=== PATIENT | female | born 1955 | race Two or more races ===

== ENCOUNTER 2020-10-22 08:12 | Outpatient (REF) | payer MEDICARE, MEDICAID, SELFPAY | END 2020-10-22 08:13 | disposition home or self-care (01) | LOC: HO.LAB 08:12 | PROVIDERS: Visit Provider Obstetrics & Gynecology | DX: N72 Inflammatory disease of cervix uteri (principal); B97.7 Papillomavirus as the cause of diseases classified elsewhere | CPT/HCPCS: 57454; 88305; 88342; 88360 ==

== ENCOUNTER → 2020-10-31 09:50 | Outpatient (BNVA) | payer MEDICAID, SELFPAY | PROVIDERS: Visit Provider Obstetrics & Gynecology ==

== ENCOUNTER 2021-02-18 09:29 | Outpatient (REF) | payer MEDICARE, MEDICAID, SELFPAY ==
--- NOTE | ~2021-02-18 | MM_ITS ---
EXAMINATION: MM SCREENING DIGITAL BREAST TOMOSYNTHESIS, BILATERAL CLINICAL INFORMATION: Screening. Asymptomatic. The lifetime risk of breast cancer based on the Tyrer-Cuzick Model is 7%. COMPARISON: Mammography: 11/19/2019, 11/15/2018, 02/23/2017 TECHNIQUE: Digital breast tomosynthesis is performed in both the craniocaudal and mediolateral oblique views along with computer-aided detection (CAD). Synthesized 2D images are generated from the tomosynthesis. Additional right MLO view is provided. FINDINGS: The breasts are heterogeneously dense, which may obscure small masses (ACR BI-RADS breast composition Category c). There are no significant masses, abnormal calcifications, or other abnormalities. Parenchymal pattern is similar to prior exams. The axilla and skin contours are unremarkable. MM/MM tomosynthesis screening BI IMPRESSION: No mammographic evidence of malignancy. ASSESSMENT: BI-RADS 1: Negative RECOMMENDATION: Routine annual mammography screening. This patient's information was entered into a reminder system with a target due date for their next mammogram.
== END 2021-02-18 09:30 | disposition home or self-care (01) ==
LOC: HO.MAMMO 09:29
PROVIDERS: PCP Nurse Practitioner Family; Visit Provider Nurse Practitioner Family
DX: Z12.31 Encounter for screening mammogram for malignant neoplasm of breast (principal)
CPT/HCPCS: 77063; 77067

== ENCOUNTER 2021-09-12 10:17 | Outpatient (REF) | payer MEDICARE, MEDICAID, SELFPAY | END 2021-09-12 10:18 | disposition home or self-care (01) | LOC: HO.LAB 10:17 | PROVIDERS: PCP Nurse Practitioner Family; Visit Provider Internal Medicine | DX: Z20.822 Contact with and (suspected) exposure to COVID-19 (principal) | CPT/HCPCS: C9803; U0003; U0005 ==

== ENCOUNTER → 2021-12-25 20:39 | Outpatient (REF) | payer MEDICARE, MEDICAID, SELFPAY | LOC: HO.SL 20:39 | PROVIDERS: Visit Provider Nurse Practitioner Family | DX: G47.33 Obstructive sleep apnea (adult) (pediatric) (principal) | CPT/HCPCS: 95810 ==

== ENCOUNTER 2022-02-20 08:34 | Outpatient (REF) | payer MEDICARE, MEDICAID, SELFPAY ==
--- NOTE | ~2022-02-20 | MM_ITS ---
EXAMINATION: BONE DENSITOMETRY CLINICAL INDICATION: Menopause. COMPARISON: None (current study represents initial baseline exam). TECHNIQUE: Using a [employer] DXA System (software version: 13.1) manufactured by [employer], dual-energy x-ray absorptiometry was performed of the lumbar spine and left hip. The images are of good technical quality. Summary results are attached. FINDINGS: AP SPINE L1-L4: BMD 0.987 g/cm2, Z-score -0.3, T-score -1.6, osteopenia. LEFT FEMUR, NECK: BMD 0.970 g/cm2, Z-score 0.8, T-score -0.5, normal. LEFT FEMUR, TOTAL: BMD 1.046 g/cm2, Z-score 1.3, T-score 0.3, normal. IDENTIFIED RISK FACTORS: Menopause. HISTORY OF FRACTURE: None listed. MEDICATIONS: Vitamin D. MM/XR DEXA axial skeleton IMPRESSION: 1. DIAGNOSIS: Osteopenia based on the lowest T-score value of -1.6 in the lumbar spine applying World Health Organization criteria. 2. 10-YEAR FRACTURE RISK PREDICTION, FRAX: Major osteoporotic fracture (clinical spine, forearm, hip or shoulder) 4.1%. Hip fracture 0.2%. 3. Treatment Recommendations: NOF guidelines recommend consideration for treatment in postmenopausal women and men age 50 and older presenting with the following: -A hip or vertebral (clinical or morphometric) fracture. -T-score less than or equal to -2.5 at the femoral neck or spine after appropriate evaluation to exclude secondary causes. -Low bone mass at the hip or spine and a 10-year fracture probability by FRAX of greater than or equal to 3% for hip fracture or greater than or equal to 20% for major osteoporotic fracture based on the [place] adapted WHO algorithm. 4. Other Recommendations: All treatment decisions require clinical judgment and consideration of individual patient factors, including patient preferences, comorbidities, previous drug use, risk factors not captured in the FRAX model (e.g. frailty, falls, vitamin D deficiency, increased bone turnover, interval significant decline in bone density) and possible under or overestimation of fracture risk by FRAX. Additional medical evaluation for secondary cause of low bone mineral density may be appropriate. FUTURE SCAN RECOMMENDATION: People with diagnosed cases of osteoporosis or at high risk for fracture should have regular bone mineral density tests. For patients eligible for Medicare, routine testing is allowed once every 2 years. The testing frequency can be increased to one year for patients who have rapidly progressing disease, those who are receiving or discontinuing medical therapy to restore bone mass, or have additional risk factors.
--- NOTE | ~2022-02-20 | MM_ITS ---
EXAMINATION: MM SCREENING DIGITAL BREAST TOMOSYNTHESIS, BILATERAL CLINICAL INFORMATION: Screening. Asymptomatic. The lifetime risk of breast cancer based on the Tyrer-Cuzick Model is 3.9%. COMPARISON: Mammography: February 18, 2021 and studies dating back to February 23, 2017 TECHNIQUE: Digital breast tomosynthesis is performed in both the craniocaudal and mediolateral oblique views along with computer-aided detection (CAD). Synthesized 2D images are generated from the tomosynthesis. FINDINGS: The breasts are heterogeneously dense, which may obscure small masses (ACR BI-RADS breast composition Category c). There are no significant masses, abnormal calcifications, or other abnormalities. MM/MM tomosynthesis screening BI IMPRESSION: There are no significant changes from prior study. ASSESSMENT: BI-RADS 1: Negative RECOMMENDATION: Routine annual mammography screening. This patient's information was entered into a reminder system with a target due date for their next mammogram.
== END 2022-02-20 08:35 | disposition home or self-care (01) ==
LOC: HO.MAMMO 08:34
PROVIDERS: PCP Nurse Practitioner Family; Visit Provider Nurse Practitioner Family
DX: Z12.31 Encounter for screening mammogram for malignant neoplasm of breast (principal); Z13.820 Encounter for screening for osteoporosis; Z78.0 Asymptomatic menopausal state; M85.80 Other specified disorders of bone density and structure, unspecified site
CPT/HCPCS: 77063; 77067; 77080

== ENCOUNTER 2022-12-25 07:24 | Outpatient (REF) | payer MEDICARE, MEDICAID, SELFPAY ==
--- NOTE | ~2022-12-25 | US_ITS ---
EXAMINATION: US ABDOMEN COMPLETE CLINICAL INFORMATION: Abdominal pain. COMPARISON: None available. TECHNIQUE: Real-time imaging of the abdominal viscera. FINDINGS: PANCREAS: Normal. ABDOMINAL AORTA: The proximal, mid, and distal segments are normal in caliber. INFERIOR VENA CAVA: Visualized portions are normal. LIVER: The liver is normal in size. The liver contour is normal. There is diffuse increased liver parenchymal echogenicity, consistent with hepatic steatosis. There is an area of focal fatty sparing seen adjacent to the gallbladder. No worrisome focal solid masses. There is no intrahepatic biliary duct dilatation seen. GALLBLADDER: Normal. The gallbladder is physiologically distended without evidence of stones, sludge, polyps, wall thickening or pericholecystic fluid. COMMON BILE DUCT: Normal in caliber measuring 0.5 cm in diameter. RIGHT KIDNEY: Normal. No hydronephrosis. No renal calculi or focal parenchymal lesions. The kidney measures 10.4 cm in maximum dimension. LEFT KIDNEY: Normal. No hydronephrosis. No renal calculi or focal parenchymal lesions. The kidney measures 10.3 cm in maximum dimension. SPLEEN: Normal. The spleen measures 9.0 cm in maximum dimension. FREE FLUID: None. US/US abdomen complete IMPRESSION: Hepatic steatosis.
== END 2022-12-25 07:25 | disposition home or self-care (01) ==
LOC: HO.US 07:24
PROVIDERS: Visit Provider Family Medicine
DX: R10.84 Generalized abdominal pain (principal)
CPT/HCPCS: 76700

== ENCOUNTER 2023-03-19 09:49 | Outpatient (REF) | payer MEDICARE, MEDICAID, SELFPAY ==
--- NOTE | ~2023-03-19 | MM_ITS ---
EXAMINATION: MM SCREENING DIGITAL BREAST TOMOSYNTHESIS, BILATERAL CLINICAL INFORMATION: Screening. Asymptomatic. The lifetime risk of breast cancer based on the Tyrer-Cuzick Model is 7%. COMPARISON: Mammography: 02/20/2022, 02/18/2021, 11/19/2019, 11/15/2018 TECHNIQUE: Digital breast tomosynthesis is performed in both the craniocaudal and mediolateral oblique views along with computer-aided detection (CAD). Synthesized 2D images are generated from the tomosynthesis. FINDINGS: The breasts are heterogeneously dense, which may obscure small masses (ACR BI-RADS breast composition Category c). There is a fibronodular parenchymal pattern is similar to prior studies. No developing density or architectural abnormality. There are no significant masses, abnormal calcifications, or other abnormalities. The axilla and skin contours are unremarkable. MM/MM tomosynthesis screening BI IMPRESSION: No mammographic evidence of malignancy. ASSESSMENT: BI-RADS 1: Negative RECOMMENDATION: Routine annual mammography screening. This patient's information was entered into a reminder system with a target due date for their next mammogram.
== END 2023-03-19 09:50 | disposition home or self-care (01) ==
LOC: HO.MAMMO 09:49
PROVIDERS: PCP Nurse Practitioner Family; Visit Provider Nurse Practitioner Family
DX: Z12.31 Encounter for screening mammogram for malignant neoplasm of breast (principal)
CPT/HCPCS: 77063; 77067

== ENCOUNTER 2023-05-15 19:21 | Outpatient (REF) | payer MEDICARE, MEDICAID, SELFPAY ==
[2023-05-26 04:38] LABS: HPV 16 RNA NOT DETECTED (NOT DETECTED); HPV mRNA E6/E7 rflx Detected (Not Detected)
== END 2023-05-15 19:22 | disposition home or self-care (01) ==
LOC: HO.HHCLNP 19:21
PROVIDERS: Visit Provider Nurse Practitioner Family
DX: R87.619 Unspecified abnormal cytological findings in specimens from cervix uteri (principal)
CPT/HCPCS: 87624; 87625; 88142

== ENCOUNTER 2023-08-07 09:56 | Outpatient (REF) | payer MEDICARE, MEDICAID, SELFPAY ==
[2023-08-07 12:35] LABS: Vitamin D 25-OH Total 46.9 ng/mL (>30)
== END 2023-08-07 09:57 | disposition home or self-care (01) ==
LOC: HO.HHCL 09:56
PROVIDERS: Visit Provider Nurse Practitioner Family
DX: E55.9 Vitamin D deficiency, unspecified (principal)
CPT/HCPCS: 36415; 82306

== ENCOUNTER 2024-03-23 11:12 | Outpatient (REF) | payer MEDICARE, MEDICAID, SELFPAY | END 2024-03-23 11:13 | disposition home or self-care (01) | LOC: HO.MAMMO 11:12 | PROVIDERS: Visit Provider Nurse Practitioner Family | DX: Z12.31 Encounter for screening mammogram for malignant neoplasm of breast (principal) | CPT/HCPCS: 77063; 77067 ==

== ENCOUNTER → 2024-03-23 11:45 | Outpatient (BNV) | payer MEDICARE, MEDICAID, SELFPAY | PROVIDERS: Visit Provider Radiology Diagnostic Radiology | DX: Z12.31 Encounter for screening mammogram for malignant neoplasm of breast (principal) | CPT/HCPCS: 77063; 77067 ==

== ENCOUNTER 2024-04-29 09:12 | Outpatient (REF) | payer MEDICARE, MEDICAID, SELFPAY ==
[2024-04-29 21:02] LABS: Cholesterol 202 mg/dL (<200); HDL Cholesterol 42 mg/dL (>40); LDL Cholesterol Calculated 100 mg/dL (<100); Triglycerides 302 mg/dL (<150)
== END 2024-04-29 09:13 | disposition home or self-care (01) ==
LOC: HO.HHCL 09:12
PROVIDERS: Visit Provider Nurse Practitioner Family
DX: E78.2 Mixed hyperlipidemia (principal)
CPT/HCPCS: 36415; 80061

== ENCOUNTER 2025-02-27 08:48 | Outpatient (REF) | payer MEDICARE, MEDICAID, SELFPAY ==
--- NOTE | ~2025-02-27 | XR_ITS ---
EXAMINATION: XR HAND 3 OR MORE VIEWS RIGHT HISTORY: pain COMPARISON: There are no prior studies available for comparison. FINDINGS: Four views of the right hand are submitted. Osseous mineralization is normal. There is no fracture or dislocation. The joint spaces are preserved. The soft tissues are unremarkable. XR/XR hand RT min 3V IMPRESSION: Unremarkable examination of the right hand. Electronically signed by: Jeovanny Arenas MD 02/27/2025 01:23 PM EDT
--- OUTSIDE RECORDS SUMMARY | 2025-02-27 08:58 | XMS_ITS | Encounter Summary ---
Author Organization [employer] Address [address] [place] [address] Care Team Providers Care Sports Medicine Trainer Name Role Phone Tanika Bazan HAULPAK DRIVER Primary Care Provider [phone] Stephanie Valdivia CREATIVE PROJECT MANAGER Primary Care Provider [phone] [facility] HAULPAK DRIVER Primary Care Provider [phone] Reason for Visit * Reason Onset Date Comments Results 12/30/2023 Encounter Details Date Type Department Care Team ([facility] st Contact Info) Description 12/30/2023 Telephone [facility] [address] [place] [address] Tanika Bazan FNP [address] [place], [place] [id number] Results Social History Tobacco Use Types Packs/Day Years Used Date Smoking Tobacco: Never Passive Smoke Exposure: Never Smokeless Tobacco: Never Alcohol Use Standard Drinks/Week Comments Never 0 (1 standard drink = 0.6 oz pur e alcohol) Depression Answer Date Recorded Patient Health Questionnaire-9 Score 0 12/24/2022 Housing Stability Answer Date Recorded What is your housing situation today? I have bishnu craig 08/01/[address] you li ve. Do you have problems with any of the following? None of the above 08/01/2023 Food Insecurity Answer Date Recorded Within the past 12 months, y ou worried that your food would run out before you got money to buy more: Never True 08/01/2023 Within the past 12 months,th e food you bought just didn't last and you didn't have enough money to get more: Never True Transportation Answer Date Recorded In the past 12 months, has l ack of transportation kept you from medical appts, meetings, work or from getting things needed for daily living? No 08/01/2023 Utilities Answer Date Recorded In the past 12 months, has t he electric, gas, oil or water company threatened to shut off services in your home? No 08/01/2023 Depression Answer Date Recorded Patient Health Questionnaire-2 Score 0 12/21/2023 Comments Unknown Sex and Gender Information Value Date Recorded Sex Assigned at Female 08/11/2022 10:31 AM EDT Legal Sex Female 10:31 AM EDT Gender Identity Choose not to disclose 10:31 AM EDT Sexual Orientation Choose not to disclose 2021 10:31 AM EDT documented as of this encounter Miscellaneous Notes * Telephone Encounter - Jessenia Ren RN - 12/31/2023 11:51 AM EDT T/C to patient to advise them to call ordering provider for echo results. Used [employer] Demond Louise ID#[id number] No answer and no option to leave voicemail. Signed, Ed Carter RN, training with Jessenia Ren * Telephone Encounter - Víctor Yusuf - 12/30/2023 10:08 AM EDT TC from pt requesting call back regarding Results. Type of results: Labs Date when done: 12/30/23 Facility: [facility] TC from pt requesting call back regarding Results. Type of results: Echo Date when done: 12/24/23 Facility: [facility] documented in this encounter Plan of Treatment Upcoming Encounters Date Type Department Care Team (Late st Contact Info) Description 02/27/2025 10:45 AM EDT Office Visit [facility] [address] [place] [address] [facility], [facility] [address] [place] [address] 03/13/2025 9:00 AM EDT Office Visit [facility] [address] [place] [address] Janee Rogers, OD [address] [place] [address] documented as of this encounter Visit Diagnoses Not on filedocumented in this encounter Additional Health Concerns Assessment Noted Time PHQ-9 Depression Total Score: 0 12/25/19 10:32 AM EDT documented as of this encounter Care Teams Sports Medicine Trainer Relationship Specialty Start Date End Date Tanika Bazan FNP [address] [place] [address] PCP - General Family Medicine 10/28/22 06/14/24 Stephanie Valdivia NP [address] [place] [address] PCP - General Family Medicine 06/15/24 12/08/24 LookoutSally FNP [address] [place] [address] PCP - General Family Medicine 12/09/24 documented as of this encounter
--- OUTSIDE RECORDS SUMMARY | 2025-02-27 08:58 | XMS_ITS | Encounter Summary ---
Author Organization [employer] Address [address] [place] [address] Care Team Providers Care Tire Servicer Name Role Phone Siri Diaz SIZING MACHINE OPERATOR Primary Care Provider [phone] Tanika Bazan SIZING MACHINE OPERATOR Primary Care Provider [phone] Stephanie Valdivia OLIVE PACKER Primary Care Provider [phone] [facility] SIZING MACHINE OPERATOR Primary Care Provider [phone] Encounter Details Date Type Department Care Team (Latest Contact Info) Description 01/22/2022 Abstract [facility] CONVERSION[facility] Dental, Provider, DDS Social History Tobacco Use Types Packs/Day Years Used Date Smoking Tobacco: Never Assessed Comments Unknown Sex and Gender Information Value Date Recorded Sex Assigned at Female 08/11/2022 10:31 AM EDT Legal Sex Female 10:31 AM EDT Gender Identity Choose not to disclose 10:31 AM EDT Sexual Orientation Choose not to disclose 2021 10:31 AM EDT documented as of this encounter Plan of Treatment Upcoming Encounters Date Type Department Care Team (Late st Contact Info) Description 02/27/2025 10:45 AM EDT Office Visit [facility] [address] [place] [address] [facility] [address] [place] [address] 03/13/2025 9:00 AM EDT Office Visit [facility] OPT[facility] [address] [place] [address] Janee Rogers, OD [address] [place] [address] documented as of this encounter Visit Diagnoses Not on filedocumented in this encounter Care Teams Tire Servicer Relationship Specialty Start Date End Date Siri Diaz FNP PCP - General Family Medicine 06/06/22 10/27/22 Tanika Bazan FNP [address] [place] [address] PCP - General Family Medicine 10/28/22 06/14/24 Stephanie Valdivia NP [address] [place] [address] PCP - General Family Medicine 06/15/24 12/08/24 Sally Rees FNP [address] [place] [address] PCP - General Family Medicine 12/09/24 documented as of this encounter
--- OUTSIDE RECORDS SUMMARY | 2025-02-27 08:58 | XMS_ITS | Encounter Summary ---
Author Organization [employer] Address [address] [facility] [place] [address] Care Team Providers Care Opener Tender Name Role Phone Tanika Bazan DISTRIBUTOR OF DIRECTORIES Primary Care Provider [phone] [facility] W[facility] Primary Care Provider [phone] [facility] DISTRIBUTOR OF DIRECTORIES Primary Care Provider [phone] Encounter Details Date Type Department Care Team (Late Contact Info) Description 06/30/2023 Orders Only [facility] [address] [place] [address] Tanika Bazan FNP [address] [place] [address] Abnormal cervical Papanicolaou smear, unspecified abnormal pap finding (Primary Dx) Social History Tobacco Use Types Packs/Day Years Used Date Smoking Tobacco: Never Passive Smoke Exposure: Never Smokeless Tobacco: Never Alcohol Use Standard Drinks/Week Comments Never 0 (1 standard drink = 0.6 oz pur e alcohol) Depression Answer Date Recorded Patient Health Questionnaire-9 Score 0 12/24/2022 Depression Answer Date Recorded Patient Health Questionnaire-2 Score 0 12/24/2022 Comments Unknown Sex and Gender Information Value Date Recorded Sex Assigned at Female 08/11/2022 10:31 AM EDT Legal Sex Female 10:31 AM EDT Gender Identity Choose not to disclose 10:31 AM EDT Sexual Orientation Choose not to disclose 2021 10:31 AM EDT documented as of this encounter Plan of Treatment Upcoming Encounters Date Type Department Care Team (Late Contact Info) Description 02/27/2025 10:45 AM EDT Office Visit [facility] [address] [place] [address] Sally Rees FNP [address] [place] [address] 03/13/2025 9:00 AM EDT Office Visit [facility] OPT[facility] [address] [place] [address] Ken, Janee, OD [address] [place] [address] documented as of this encounter Visit Diagnoses Diagnosis Abnormal cervical Papanicolaou smear, unspecified abnormal pap finding- Primary documented in this encounter Additional Health Concerns Assessment Noted Time PHQ-9 Depression Total Score: 0 12/25/19 23 10:32 AM EDT documented as of this encounter Care Teams Opener Tender Relationship Specialty Start Date End Date Tanika Bazan FNP [address] [place] [address] PCP - General Family Medicine 10/28/22 06/14/24 Stephanie Valdivia NP [address] [place] [address] PCP - General Family Medicine 06/15/24 12/08/24 Sally Rees FNP [address] [place] [address] PCP - General Family Medicine 12/09/24 documented as of this encounter
--- OUTSIDE RECORDS SUMMARY | 2025-02-27 08:58 | XMS_ITS | Encounter Summary ---
Author Organization [employer] Address [address] [facility] [address] [facility] [address] [place] [address] Care Team Providers Care Campus Monitor Name Role Phone Siri Diaz MAIL SORTER AND DELIVERY Primary Care Provider [phone] Tanika Bazan MAIL SORTER AND DELIVERY Primary Care Provider [phone] Stephanie Valdivia BINMAN Primary Care Provider [phone] [facility] MAIL SORTER AND DELIVERY Primary Care Provider [phone] Encounter Details Date Type Department Care Team (Latest Contact Info) Description 04/05/2019 Abstract [facility] CONVERSIONS Dental, Provider, DDS Social History [...] Description 02/27/2025 10:45 AM EDT Office Visit [facility] [address] [place] [address] [facility] [address] [place] [address] 03/13/2025 9:00 AM EDT Office Visit [facility] OPTOMETRY [address] [place] [address] Janee Rogers, OD [address] [place] [address] documented as of this encounter Visit Diagnoses Not on filedocumented in this encounter Care Teams Campus Monitor Relationship Specialty Start Date End Date Siri Diaz FNP PCP - General Family Medicine 06/06/22 10/27/22 Tanika Bazan FNP [address] [place] [address] PCP - General Family Medicine 10/28/22 06/14/24 Stephanie Valdivia NP [address] [place] [address] PCP - General Family Medicine 06/15/24 12/08/24 Sally Rees FNP [address] [place] [address] PCP - General Family Medicine 12/09/24 documented as of this encounter
--- OUTSIDE RECORDS SUMMARY | 2025-02-27 08:59 | XMS_ITS | Encounter Summary ---
Author Organization [employer] Address [address] [facility] [address] [place] [address] Care Team Providers Care News Clipping Cutter Name Role Phone Tanika Bazan CODING CONSULTANT Primary Care Provider [phone] Stephanie Valdivia RADIOLOGY RESIDENT Primary Care Provider [phone] [place] Sally CODING CONSULTANT Primary Care Provider [phone] Encounter Details Date Type Department Care Team ([facility] st Contact Info) Description 04/27/2023 Abstract [facility] [address] [place], [place] [phone] Tanika Bazan FNP [address] [place] [address] Social History Tobacco Use Types Packs/Day Years [...] not to disclose 2021 10:31 AM EDT COVID-19 Exposure Response Date Recorded In the last 10 days, have yo u been in contact with someone who was confirmed or suspected to have Coronavirus/COVID-19? No / Unsure 04/15/2023 9:39 AM EDT documented as of this encounter Plan of Treatment Upcoming Encounters Date Type Department Care Team (Late st Contact Info) Description 02/27/2025 10:45 AM EDT Office Visit [facility] [address] [place] [address] Sally Rees FNP [address] [place] [address] 03/13/2025 9:00 AM EDT Office Visit [facility] [address] [place] [address] Ken, Janee, OD [address] [place] [address] documented as of this encounter Visit Diagnoses Not on filedocumented in this encounter Additional Health Concerns Assessment Noted Time PHQ-9 Depression Total Score: 0 12/25/19 10:32 AM EDT documented as of this encounter Care Teams News Clipping Cutter Relationship Specialty Start Date End Date Tanika Bazan FNP [address] [place] [address] PCP - General Family Medicine 10/28/22 06/14/24 Stephanie Valdivia NP [address] [place] [address] PCP - General Family Medicine 06/15/24 12/08/24 Sally Rees FNP [address] [place] [address] PCP - General Family Medicine 12/09/24 documented as of this encounter
--- OUTSIDE RECORDS SUMMARY | 2025-02-27 08:59 | XMS_ITS | Clinical Summary ---
Author Organization [employer] Address [address] [place] [address] Care Team Providers Care Bridge Inspector Name Role Phone [facility] Primary Care Provider [phone] Allergies No known active allergies Medications amLODIPine (Norvasc) 5 MG tablet Take 1 tablet (5 mg) by mouth Once per day. 90 tablet 3 04/15/20 Active cholecalciferol (Vitamin D-3) 50 MCG (2000 UT) capsule Take 1 capsule (50 mcg) by mouth Once per day. 90 capsule 04/15/20 24 025 Active metFORMIN XR (Glucophage-XR) 500 MG 24 hr tablet Take 1 tablet (500 mg) by mouth Once per day. 90 tablet 04/15/20 24 025 Active omeprazole (PriLOSEC) [address] capsule Take 1 capsule (20 mg) by mouth before breakfast. Do not crush or chew. 90 capsule 04/15/20 24 025 Active rosuvastatin (Crestor) 40 MG tabletIndications:Mixed hypercholesterolemia and hypertriglyceridemia Take 1 tablet (40 mg) by mouth Once per day. 90 tablet 04/15/20 24 025 Active Polyethylene Glycol 3350 (PEG 3350) 17 GM/SCOOP powder TAKE 17 GM MIXED IN 8 OUNCES OF WATER, COFFEE OR TEA ONCE DAILY 510 g 04/15/20 24 Active Ascorbic Acid (vitamin C) 1000 MG tablet Take 1,000 mg by mouth Once per day. Purchases OTC Active alpha tocopherol (Vitamin E) 100 units capsule Take 100 Units by mouth Once per day. Purchases unknown strength OTC Active Nirmatrelvir&Ritonavir 300/100 (Paxlovid, 300/100,) 20 x 150 MG & 10 x 100MG tablet therapy pack Take 300 mg by mouth 2 times daily. Take 3 tablets 2x/day for 5 days 30 each 06/20/20 24 Active fluticasone (Flonase) 50 MCG/ACT nasal spray INSTILL 1 SPRAY IN EACH NOSTRIL ONCE DAILY 16 g 1 10/07/20 24 Active aspirin (Aspirin Low Dose) 81 MG chewable tabletIndications:Mixed hyperlipidemia CHEW 1 TABLET BY MOUTH EVERY MORNING 90 tablet 2 01/14/20 25 Active Active Problems Problem Noted Date Diagnosed Date Dyslipidemia 02/11/2024 Overview (04/15/2024): Last Assessment & Plan: Continue rosuvastatin 20 mg daily. Palpitations 02/11/2024 Overview (04/15/2024): Last Assessment & Plan: She continues to report palpitations at times so she was supposed to wear a 30- day Holter monitor but at the time she was dealing with her 's illnesses and she was going to his appointments with this. Instead she comes to the office today continuing to report palpitations. She is on no AV maycol blockers. We will repeat the MCOT 30-day for assessment of her palpitations. Hepatic steatosis 01/23/2023 Type 2 diabetes mellitus 12/11/2022 Osteopenia 12/11/2022 Constipation 12/11/2022 History of syphilis 12/11/2022 Chronic gastroesophageal reflux disease 12/12/19 23 Normal mammography 02/19/2021 Abnormal cervical Papanicolaou smear 11/28/2020 Mixed hypercholesterolemia and hypertriglyceride toni 12/27/2018 Prediabetes 12/27/2018 Chronic thoracic back pain 10/14/2018 Hypermetropia 06/23/2017 Benign essential hypertension 02/18/2017 Overview (04/15/2024): Last Assessment & Plan: She has a history for hypertension. BP today 130/80. She is on amlodipine 5 mg daily which she will continue. She is encouraged to follow her healthy diet including low sodium. Encounters Date Type Department Care Team Description 02/24/2025 Telephone [facility] [address] [facility] [place] [address] Sally Rees FNP Chart Prep 02/20/2025 Patient Outreach [facility] [address] [facility] [place] [address] Sally Rees FNP Pre-visit Planning ((Unable to reach for PVP screening, LVM)) 01/12/2025 Refill [facility] [address] [facility] [place] [address] Tanika Bazan FNP Mixed hyperlipidemia from Last 3 Months Immunizations Immunization Administration Dates Next Due Hep A, Adult 05/15/2023 Hep B, adult 11/25/2021,05/24/2021 Influenza High-dose Quadriva lent Preservative Free 08/04/2022 Influenza Injectable Quadriv alant Preservative Free IIV4 MDCK 08/16/2021 Influenza injectable quadriv alent preservative free 07/25/2020,09/07/2018,07/30/2017 Influenza, High Dose Seasona l, Preservative Free 07/22/2024 Pneumococcal Conjugate PCV 20 05/15/2023 Pneumococcal Polysaccharide PPSV23 05/24/2021 Tdap 02/18/2017 Zoster, Recombinant 06/27/2021 Family History Medical History Relation Name Comments Stroke Father Diabetes type II Mother Relation Name Status Comments Father Mother Social History Tobacco Use Types Packs/Day Years Used Date Smoking Tobacco: Never Passive Smoke Exposure: Never Smokeless Tobacco: Never Tobacco Cessation:Counseling Given: Not Answered Alcohol Use Standard Drinks/Week Comments Never 0 (1 standard drink = 0.6 oz pur e alcohol) Depression Answer Date Recorded Patient Health Questionnaire-9 Score 2 06/06/2024 Patient Health Questionnaire-9 Score 2 06/06/2024 Last PHQ-9: Questionnaire Data Not on file 0 06/06/2024 Housing Stability Answer Date Recorded What is [...] Answer Date Recorded Patient Health Questionnaire-2 Score 2 06/06/2024 Comments Unknown Sex and Gender Information Value Date Recorded Sex Assigned at Female 08/11/2022 10:31 AM EDT Legal Sex Female 10:31 AM EDT Gender Identity Choose not to disclose 10:31 AM EDT Sexual Orientation Choose not to disclose 2021 10:31 AM EDT Last Filed Vital Signs Vital Sign Reading Time Taken Comments Blood Pressure 117/78 06/20/2024 8:56 AM EDT Pulse 59 06/20/2024 8:56 AM EDT Temperature 36.7 ??C (98 ??F) 06/20/2024 8:56 AM EDT Respiratory Rate 12 06/20/2024 8:56 AM EDT Oxygen Saturation 98% 06/20/2024 8:56 AM EDT Inhaled Oxygen Concentration - - Weight 80.2 kg (176 lb 12.8 oz) 06/20/2024 8:56 AM EDT Height 157.5 cm (5' 2 ) 06/20/2024 8:56 AM EDT Body Mass Index 32.34 06/20/2024 8:56 AM EDT Plan of Treatment Upcoming Encounters Date Type Department Care Team (Late st Contact Info) Description 02/27/2025 10:45 AM EDT Office Visit [facility] [address] [place], [place] [phone] [facility], [facility] [address] [place], [place] [phone] 03/13/2025 9:00 AM EDT Office Visit [facility] [address] [place] [address] Janee Rogers, OD [address] [place] [address] Health Maintenance Due Date Last Done Comments CT Colonography 1955 FIT 1955 FOBT 1955 Sigmoidoscopy 1955 Diabetes: Foot Exam 1965 Alcohol/Substance Use Screening 1967 RSV Patients and Patients Aged 60 years or older (1 - Risk 60-74 years 1-dose series) 2015 Zoster Vaccines (2 of 2) 08/22/2021 06/27/2021 Hepatitis B Vaccines (3 of 3 - Risk 3-dose series) 01/20/2022 11/25/2021, 05/24/2021 Diabetes: Urine Protein Screening 05/02/2023 05/02/2022, 02/21/2021, 11/22/2020, Additional history exists Hepatitis A Vaccines (2 of 2 - Risk 2-dose series) 11/15/2023 05/15/2023 COVID-19 Vaccine ( season) 2024 08/19/2021, 01/21/2021, 12/24/2020 Diabetes: Hemoglobin A1C 06/22/2024 024, 05/15/2023, 12/25/2022, Additional history exists Cervical Cancer Screening 11/23/2024 HPV/Cotest 11/23/2024 05/15/2023, 11/13, 12/09/2021, Additional history exists Pap Smear 11/23/2024 05/15/2023, 11/13, 08/03/2020 SDOH Screening 12/20/2024 12/21/2023 Lipid Panel 04/29/2025 04/29/2024, 03/13, 12/25/2022, Additional history exists Eye Exam 06/01/2025 06/01/2023, 05/13, 06/01/2023, Additional history exists Depression Screening 06/06/2025 06/06/2024, 08/26/20 24 Tobacco Screening 06/20/2025 06/20/2024 Mammogram 03/23/2026 03/23/2024, 06/0 05/2023, 03/19/2023, Additional history exists FIT DNA/Cologuard 08/17/2026 08/17/2023 DTaP/Tdap/Td Vaccines (2 - Td or Tdap) 02/18/2027 02/18/2017 Colonoscopy 08/24/2027 08/24/2017 Colorectal Cancer Screening 08/24/2027 Hepatitis C Screening Completed 04/10/2023 Pneumococcal Vaccine: 50+ Years Completed 05/15/2023, 05/24/2021 Colposcopy Completed 11/23/2023 Influenza Vaccine Completed 07/22/2024, , 08/16/2021, Additional history exists HIB Vaccines Aged Out No longer eligi ble based on patient's age to complete this topic HPV Vaccines Aged Out No longer eligi ble based on patient's age to complete this topic IPV Vaccines Aged Out No longer eligi ble based on patient's age to complete this topic Meningococcal B Vaccine Aged Out No l onger eligible based on patient's age to complete this topic Meningococcal Vaccine Aged Out No elsa sherron eligible based on patient's age to complete this topic RSV under 20 months Aged Out No longe r eligible based on patient's age to complete this topic Rotavirus Vaccines Aged Out No longer eligible based on patient's age to complete this topic Procedures Procedure Name Priority Date/Time Associated Diagnosis Comments LIPID PANEL, STANDARD Routine 04/29/2024 9:17 AM EDT Mixed hypercholesterolemia and hypertriglyceridemia BI MAMMOGRAM SCREENING TOMOSYNTHESIS BILATERAL Routine 03/23/2024 11:35 AM EDT POCT GLYCATED HEMOGLOBIN, TOTAL Routine 12/21/2023 2:42 PM EDT Type 2 diabetes mellitus with hyperosmolarity without coma, without long-term current use of insulin (CMS/HCC) BIOPSY CERVIX Routine 11/23/2023 LAB COLOGUARD?? COLON CANCER SCREEN Routine 08/17/2023 1:01 AM EST Colon cancer screening HPV MRNA E6/E7 REFLEX TO HPV 16, 18/45 Routine 05/15/2023 12:00 AM EDT PAP SMEAR Routine 05/15/2023 HEPATITIS C AB W/REFL TO HCV RNA, QN, PCR Routine 04/10/2023 10:05 AM EDT Routine adult health maintenance ALBUMIN, RANDOM URINE W/CREATININE Routine 05/02/2022 8:35 AM EDT HM COLONOSCOPY Routine 08/24/2017 3:29 PM EST from Last 3 Months or Most Recently Relevant to Health Maintenance Results * (ABNORMAL) Lipid Panel, Standard (04/29/2024 9:17 AM EDT) Triglycerides 302(H) <150 mg/dL [facility] Comment:Desirable Triglyceri de: less than 150 mg/dLBorderline High Triglyceride 150-199 mg/dLHigh Triglyceride: 200-499 mg/dLVery High Triglyceride: greater than or equal to 5OO mg/dL Cholesterol 202(H) <200 mg/dL [facility] Comment:Desirable Cholestero l: less than 200 mg/dLBorderline High Cholesterol: 200-239 mg/dLHigh Cholesterol: greater than 239 mg/dL LDL Cholesterol Calculated 100(H) <100 mg/dL [facility] Comment:Desirable LDL: less than 100 mg/dLNear Optimal/Above Optimal LDL: 110- 129 mg/dLBorderline High LDL: 130-159 mg/dLHigh LDL: 160-189 mg/dLVery High LDL: greater than or equal to 190 mg/dL HDL Cholesterol 42 >40 mg/dL [facility] Comment:Desirable HDL: great er than 40 mg/dL Note: This HDL assay may give artificially low results in patients with liver disease. Blood Venous blood specimen / Unknown 04/29/2024 9:17 AM EDT 04/29/2024 10:40 AM EDT Tanika Bazan [employer] LAB BLOOD ORDERABLES Final Resu lt [facility] [address] [place] [address] [phone] * BI Mammogram Screening Tomosynthesis Bilateral (03/23/2024 11:35 AM EDT) Anatomical Region Laterality Modality Breast Bilateral Mammography 03/23/2024 11:3 5 AM EDT Narrative 04/22/2024 8:01 AM EDT ? [facility] [place] ? [address] ?[place] [address] ? Mammography Report ? Signed ? Patient: Elizabeth Beverly ?MR# ?? : [id number] ? : 1955 ?Acct:[id number] ? Age/Sex: 68 / F ?ADM Date: 03/23/24 ? Loc: HO.MAMMO ? Attending Dr: Tanika Bazan MANAGER SEMICONDUCTOR ? Ordering Physician: Tanika Bazan MANAGER SEMICONDUCTOR ?Results: 1Negativ ?? e ? Date of Service: 03/23/24 ?Follow Up: 1 Year From Orig ?? inal Mammogram ? Procedure(s): MM tomosynthesis screening BI ?? Accession Number(s): [id number] ? cc: Tanika Bazan MANAGER SEMICONDUCTOR ? EXAMINATION: ?? MM SCREENING DIGITAL BREAST TOMOSYNTHESIS, BILATERAL ? CLINICAL INFORMATION: ? Screening. Asymptomatic. ? COMPARISON: ?? Mammography: This study is compared with prior exams dating back to ?? 2019. ? TECHNIQUE: ?? Digital breast tomosynthesis is performed in both the craniocaudal and ?? mediolateral oblique views along with computer-aided detection (CAD). ?? Synthesized 2D images are generated from the tomosynthesis. ? FINDINGS: ?? There are scattered areas of fibroglandular density (ACR BI-RADS breast ?? composition Category b). ? There are no significant masses, abnormal calcifications, or other ?? abnormalities. ? MM/MM tomosynthesis screening BI ?? IMPRESSION: ?? No mammographic evidence of malignancy. ? ASSESSMENT: ? BI-RADS BI-RADS 1 - Negative ? RECOMMENDATION: ?? Routine annual mammography screening. ? 1 year F/U ? This examination should not preclude the clinical evaluation of a ?? suspicious palpable abnormality. ? This patient's information was entered into a reminder system with a ?? target due date for their next mammogram. ? Dictated By: ?Allie Barr MD ? Signed By: ?<Electronically signed by Allie Barr MD in OV> ? 04/22/24 0757 ? DD/ 1135 ? TD/TT: ? Preparer: ? Procedure Note Donkatrinater, Image - 04/22/2024 [facility] [address] [place] [address] Mammography Report Signed Patient: Elizabeth BeverlyMR# : [id number] : 5Acct:[id number] Age/Sex: 68 / FADM Date: 03/23/24 Loc: [facility] Attending Dr: Tanika Bazan MANAGER SEMICONDUCTOR Ordering Physician: Tanika Bazanults: 1Negativ e Date of Service: 03/23/24Follow Up: 1 Year From Orig inal Mammogram Procedure(s): MM tomosynthesis screening BI Accession Number(s): [id number] cc: Tanika Bazan MANAGER SEMICONDUCTOR EXAMINATION: MM SCREENING DIGITAL BREAST TOMOSYNTHESIS, BILATERAL CLINICAL INFORMATION: Screening. Asymptomatic. COMPARISON: Mammography: This study is compared with prior exams dating back to 2019. TECHNIQUE: Digital breast tomosynthesis is performed in both the craniocaudal and mediolateral oblique views along with computer-aided detection (CAD). Synthesized 2D images are generated from the tomosynthesis. FINDINGS: There are scattered areas of fibroglandular density (ACR BI-RADS breast composition Category b). There are no significant masses, abnormal calcifications, or other abnormalities. MM/MM tomosynthesis screening BI IMPRESSION: No mammographic evidence of malignancy. ASSESSMENT: BI-RADS BI-RADS 1 - Negative RECOMMENDATION: Routine annual mammography screening. 1 year F/U This examination should not preclude the clinical evaluation of a suspicious palpable abnormality. This patient's information was entered into a reminder system with a target due date for their next mammogram. Dictated By: Allie Barr MD Signed By: <Electronically signed by Allie Barr MD in OV> 04/22/24 0757 DD/ 1135 TD/TT: Preparer: Tanika PRINCE IMG BI PROCEDURES Final Result * (ABNORMAL) POCT HGB A1C (12/21/2023 2:42 PM EDT) Hemoglobin A1C 6.8(A) 4.0 - 6.0 % QC Media Lot # [id number] Lot# Expiration Date Blood 12/21/2023 2:42 PM EDT Tanika WHITEP POINT OF CARE TEST ENTER/EDIT O RDERABLES Final Result * Biopsy cervix (11/23/2023) Historical Provider IN CLINIC/BEDSIDE ORDERAB LES Final Result * Cologuard?? colon cancer screening (08/17/2023 1:01 AM EST) Cologuard Result Negative Negative 08/26/20 10:22 AM [facility] (CLIA #:[id number]) Comment: NEGATIVE TEST RESULT. A negative Cologuard result indicates a low likelihood that a colorectal cancer (CRC) or advanced adenoma (adenomatous polyps with more advanced pre-malignant features) ??is present. The chance that a person with a negative Cologuard test has a colorectal cancer is less than 1 in 1500 (negative predictive value >99.9%) or has an ??advanced adenoma is less than ??5.3% (negative predictive value 94.7%). These data are based on a prospective cross-sectional study of 10,000 individuals at average risk for colorectal cancer who were screened with both Cologuard and colonoscopy. (Karol Wren et al, N Engl J Med 2014;370(14):1286- 1297) The normal value (reference range) for this assay is negative. COLOGUARD RE-SCREENING RECOMMENDATION: Periodic colorectal cancer screening is an important part of preventive healthcare for asymptomatic individuals at average risk for colorectal cancer. ??Following a negative Cologuard result, the [place] [employer] and U.S. Multi-Society Task Force screening guidelines recommend a Cologuard re-screening interval of 3 years. References: [place] [employer] Guideline for Colorectal Cancer Screening: https://www.cancer.org/cancer/tnfxa-jddovt-cqhmyw/bnzpnuvxa-fjmdadhbw-epbsglh/ac s-rec ommendations.html.; Isaac DK, Priscilla CR, Gayle GordonK, Colorectal Cancer Screening: Recommendations for Physicians and Patients from the U.S. Multi-Society Task Force on Colorectal Cancer Screening , Am J Gastroenterology 2017; 112:7746-8510. TEST DESCRIPTION: Composite algorithmic analysis of stool DNA-biomarkers with hemoglobin immunoassay. ?? Quantitative values of individual biomarkers are not reportable and are not associated with individual biomarker result reference ranges. Cologuard is intended for colorectal cancer screening of adults of either sex, 45 years or older, who are at average-risk for colorectal cancer (CRC). Cologuard has been approved for use by the U.S. FDA. The performance of Cologuard was established in a cross sectional study of average-risk adults aged 50-84. Cologuard performance in patients ages 45 to 49 years was estimated by sub-group analysis of near-age groups. Colonoscopies performed for a positive result may find as the most clinically significant lesion: colorectal cancer [4.0%], advanced adenoma (including sessile serrated polyps greater than or equal to 1cm diameter) [20%] or non- advanced adenoma [31%]; or no colorectal neoplasia [45%]. These estimates are derived from a prospective cross-sectional screening study of 10,000 individuals at average risk for colorectal cancer who were screened with both Cologuard and colonoscopy. (Karol Pelayo al, N Engl J Med 2014;370(14):3793-9203.) Cologuard may produce a false negative or false positive result (no colorectal cancer or precancerous polyp present at colonoscopy follow up). A negative Cologuard test result does not guarantee the absence of CRC or advanced adenoma (pre-cancer). The current Cologuard screening interval is every 3 years. ([place] [employer] and U.S. Multi-Society Task Force). Cologuard performance data in a 10,000 patient pivotal study using colonoscopy as the reference method can be accessed at the following location: www.First [employer]/results. Additional description of the Cologuard test process, warnings and precautions can be found at www.TourPalrd.com. Stool specimen (specimen) 08/17/2023 1:01 AM EST 08/18/2023 8:52 PM EST Tanika Bazan PHP [employer]EL[employer] LAB MOLECULAR DIAGNOSTICS ORDER ARACELI Final Result [facility] (CLIA #:[id number]) [place] [address], * (ABNORMAL) HPV mRNA E6/E7 w/Reflex to HPV Genotypes 16, 18/45 (05/15/2023 12:00 AM EDT) HPV nRNA E6/E7 Detected(A ) Not Detected [facility] Comment:Methodology: Transcr iption-Mediated AmplificationThis assay detects E6/E7 viral messenger RNA (mRNA) from 14high-risk HPV types (16,18,31,33,35,39,45,51,52,56,58,59,66,68).Cervical sources are required for HPV testing.If a vaginal source from a patient who has had atotal hysterectomy with removal of cervix wassubmitted, please contact the testing laboratoryfor alternative testing options.For additional information, please refer tohttp://education.[facility]/faq/XVX143a9(This link if provided for information/educational purposes only.)THIS TEST WAS PERFORMED AT:[facility] [place] [phone] MAYORGA MD HPV 16 RNA NOT DETECTED NOT DETECTED [facility] HPV 18/45 RNA NOT DETECTED NOT DETECTED [facility] Comment:Methodology: Transcr iption Mediated AmplificationCervical sources are required for HPV testing.If a vaginal source from a patient who has had atotal hysterectomy with removal of cervix wassubmitted, please contact the testing laboratoryfor alternative testing options.THIS TEST WAS PERFORMED AT:[facility] [place] [phone] MAYORGA MD 05/15/2023 05/18/2023 11: 45 AM EDT Tanika Bazan [facility] CYTOLOGY ORDERABLES Final R esult [facility] [address] [place] [phone] * Pap Smear (05/15/2023) 05/15/2023 05/18/2023 11: 45 AM EDT Narrative [facility] - 06/08/2023 9:50 AM EDT ----- ------- Name: Elizabeth Beverly ? Age/Sex: 67/F ? : 1955 Unit#: [id number] ?? Attend Dr: Tanika Bazan MANAGER SEMICONDUCTOR ?Re05/15/23 ?Status: DEP REF ? Location: HO.HHCLNP ? Disch: ? ----- ------- SPEC : [id number] ?RECD: 05/18/23- ? STATUS: ??SOUT ? REQ NUM: [id number] ? LIZA: 05/15/23- ? SUBM DR: Tanika Bazan MANAGER SEMICONDUCTOR ? ENTERED: ??05/18/23-2516 ?SP TYPE: Pap Smr ?OTHR DR: ? ORDERED: ??Pap Smear ? Interpretation ?? Satisfactory for evaluation. ?? Negative for intraepithelial lesion or malignancy. ? HPV mRNA E6/E7: ?DETECTED ? This assay detects E6/E7 viral messenger RNA (mRNA) from 14 high-risk HPV types (16, 18, ?? 31, 33, 35, 39, 45, 51, 52, 56, 58, 59, 66, 68) ? HPV Type 16 RNA: ?Not Detected ?? HPV Type 18/45 RNA: ? Not Detected ? HPV testing performed by [facility], [place], [place]. ??See reference laboratory ?? portion of the EMR for entire report. ?Clinical Information LMP:Unknown date Previous PAP test:2021, Abnormal Other history: Pap history NIL, HR, HPV+ x2 years, CINI x1 year ? Material Received ?? ThinPrep-Vaginal/Cervical ----- ------- Signed (signature on file) Claudia Sal MD 06/08/23 0950 ? ----- ------- ? END OF REPORT ? [facility] CYTOLOG[facility] ORDERABLES Final R esult Performing Organization Address City/[facility]/ZIP Co de Phone Number [facility] [address] [place] [address] [phone] * Hepatitis C Antibody with Reflex to HCV, RNA, Quantitative, Real-Time PCR (04/10/2023 10:05 AM EDT) Hepatitis C Antibody NON-REACT JANE NON-REACT JANE [facility] [place] [facility] Comment: HCV antibody was non-reactive. There is no laboratory evidence of HCV infection. In most cases, no further action is required. However, if recent HCV exposure is suspected, a test for HCV RNA (test code 03542) is suggested. For additional information please refer to http://education.[facility]/faq/JBP72j5 (This link is being provided for informational/ educational purposes only.) Blood Venous blood specimen / Unknown 04/10/2023 10:05 AM EDT 04/10/2023 10:05 AM EDT Result [facility] Tanika [facility] BLOOD ORDERABLES Final Resu lt Performing Organization Address [facility] de Phone Number [facility] [address], [place] [address] [facility] [address] [place] [phone] * ALBUMIN, RANDOM URINE W/CREATININE (05/02/2022 8:35 AM EDT) Microalbumin Urine 0.9 See Note: mg/dL [facility] Comment: Reference Range: ?? Reference Range Not established Microalb/Creat Ratio 5 <30 mcg/mg creat [facility] Comment: ?? The ADA defines abnormalities in albumin excretion as follows: ?? Albuminuria Category ?Result (mcg/mg creatinine) ?? Normal to Mildly increased ?? <30 Moderately increased ? 30-299 ?? Severely increased ? > OR = 300 ?? The ADA recommends that at least two of three specimens collected within a 3-6 month period be abnormal before considering a patient to be within a diagnostic category. Creatinine, Urine 169 20 - 275 mg/dL [facility] 05/02/2022 8:35 AM EDT Yoly Paul PHP DEVEL[employer] LAB URINE ORDERABLES Final Res ult [facility] [address] [place] [address], * Colonoscopy (08/24/2017 3:29 PM EST) Colonoscopy Normal Normal Narrative Inga Mae - 08/24/2017 3:29 PM EST Recommended 10 year follow up ([facility]) Historical Provider HEALTH MAINTENANCE Edited Result - Final from Last 3 Months or Most Recently Relevant to Health Maintenance Insurance MEDICARE [facility] Care Teams Bridge Inspector Relationship Specialty Start Date End Date Sally Rees FNP [address] [place] [phone] PCP - General Family Medicine 12/09/24
--- OUTSIDE RECORDS SUMMARY | 2025-02-27 08:59 | XMS_ITS | Encounter Summary ---
Author Organization [employer] Address 75 [facility] 7t [place] [address] Care Team Providers Care Drafter Mechanical Name Role Phone Tanika Bazan RAPID TRANSIT OPERATOR Primary Care Provider [phone] Stephanie Valdivia DIGITAL MEDIA DIRECTOR Primary Care Provider [phone] Easton Sally RAPID TRANSIT OPERATOR Primary Care Provider [phone] Encounter Details Date Type Department Care Team ([facility] st Contact Info) Description 04/10/2023 Abstract [facility] [address] [place], [place] [phone] Tanika Bazan FNP [address] [place] [address] Social History Tobacco Use Types Packs/Day Years [...] suspected to have Coronavirus/COVID-19? No / Unsure 04/10/2023 8:36 AM EDT documented as of this encounter Plan of Treatment Upcoming Encounters Date Type Department Care Team (Late st Contact Info) Description 02/27/2025 10:45 AM EDT Office Visit [facility] [address] [place] [address] Sally Rees FNP [address] [place] [address] 03/13/2025 9:00 AM EDT Office Visit [facility] [address] [place] [address] Ken, Janee, OD [address] [place] [address] documented as of this encounter Visit Diagnoses Not on filedocumented in this encounter Additional Health Concerns Assessment Noted Time PHQ-9 Depression Total Score: 0 12/25/19 10:32 AM EDT documented as of this encounter Care Teams Drafter Mechanical Relationship Specialty Start Date End Date Tanika Bazan FNP [address] [place] [address] PCP - General Family Medicine 10/28/22 06/14/24 Stephanie Valdivia NP [address] [place] [address] PCP - General Family Medicine 06/15/24 12/08/24 Sally Rees FNP [address] [place] [address] PCP - General Family Medicine 12/09/24 documented as of this encounter
--- OUTSIDE RECORDS SUMMARY | 2025-02-27 08:59 | XMS_ITS | Encounter Summary ---
Author Organization [employer] Address [address] [facility] [address] 7[address] [place] [address] Care Team Providers Care Painter Sign Maintenance Name Role Phone [place] [facility] Primary Care Provider [phone] Reason for Visit * Reason Onset Date Comments Chart Prep 02/24/2025 Encounter Details Date Type Department Care Team ([facility] st Contact Info) Description 02/24/2025 Telephone [facility] [address] [place], [place] [phone] [facility] [address] [place] [address] Chart Prep Social History Tobacco Use Types Packs/Day Years [...] encounter Miscellaneous Notes * Telephone Encounter - Jenn Hendrix MA - 02/24/2025 2:25 PM EDT Chart Prep Labs: not done Spoke with patient will have lab done tomorrow. Images: not applicable Referrals: not applicable Vaccines due: Covid, Hep B, Hep A, RSV, and Zoster Screenings: pap smear and foot exam Overdue care gaps: A1c, Glucose, SBIRT, and Oral health screening documented in this encounter Plan of Treatment Upcoming Encounters Date Type Department Care Team (Late st Contact Info) Description 02/27/2025 10:45 AM EDT Office Visit [facility] [address] [place] [address] [place], Sally, EXHIBITIONS AND COLLECTIONS MANAGER [address] [place] [address] 03/13/2025 9:00 AM EDT Office Visit [facility] [address] [place] [address] Janee Rogers, OD [address] [place] [address] documented as of this encounter Visit Diagnoses Not on filedocumented in this encounter Additional Health Concerns Assessment Noted Time PHQ-9 Depression Total Score: 2 06/06/20 24 12:04 PM EDT documented as of this encounter Care Teams Painter Sign Maintenance Relationship Specialty Start Date End Date NegritaSallyNIKI [address] [place] [address] PCP - General Family Medicine 12/09/24 documented as of this encounter
--- OUTSIDE RECORDS SUMMARY | 2025-02-27 08:59 | XMS_ITS | Encounter Summary ---
Author Organization [email or web address] Address 75 [facility] 7t [place] [address] Care Team Providers Care Italian Lecturer Name Role Phone Tanika Bazan FARM HELPER Primary Care Provider [phone] [facility] TRAIN CONTROL TECHNICIAN Primary Care Provider [phone] [facility] FARM HELPER Primary Care Provider [phone] Encounter Details Date Type Department Care Team (Late Contact Info) Description 03/25/2023 Abstract [facility] [address] [place] [address] Tanika Bazan FNP [address] [place] [address] Social History Tobacco Use Types Packs/Day Years Used Date Smoking Tobacco: Never Passive Smoke Exposure: Never Smokeless Tobacco: Never Depression Answer Date Recorded Patient Health Questionnaire-9 [...] suspected to have Coronavirus/COVID-19? No / Unsure 02/27/2023 2:35 PM EDT documented as of this encounter Plan of Treatment Upcoming Encounters Date Type Department Care Team (Late Contact Info) Description 02/27/2025 10:45 AM EDT Office Visit [facility] [address] [place] [address] Negrita, Sally, FARM HELPER [address] [place] [address] 03/13/2025 9:00 AM EDT Office Visit [facility] [address] [place] [address] Ken, Janee, OD [address] [place] [address] documented as of this encounter Procedures Procedure Name Priority Date/Time Associated Diagnosis Comments MAMMOGRAPHY Routine 03/19/2023 3:37 PM EDT COLONOSCOPY Routine 08/24/2017 3:29 PM EST documented in this encounter Results * Mammography (03/19/2023 3:37 PM EDT) Mammogram Birads 1 Anatomical Region Laterality Modality Other us Historical Provider MD HEALTH MAINTENANCE Final Result * Colonoscopy (08/24/2017 3:29 PM EST) Colonoscopy Normal Normal Narrative Inga Mae - 08/24/2017 3:29 PM EST Recommended 10 year follow up ([facility] [place] Historical Provider HEALTH MAINTENANCE Edited Result - Final documented in this encounter Visit Diagnoses Not on filedocumented in this encounter Additional Health Concerns Assessment Noted Time PHQ-9 Depression Total Score: 0 12/25/19 10:32 AM EDT documented as of this encounter Care Teams Italian Lecturer Relationship Specialty Start Date End Date Tanika Bazan FNP [address] [place] [address] PCP - General Family Medicine 10/28/22 06/14/24 tSephanie Valdivia NP [address] [place] [address] PCP - General Family Medicine 06/15/24 12/08/24 [place] FNP [address] [place] [address] PCP - General Family Medicine 12/09/24 documented as of this encounter
[2025-02-27 11:39] LABS: Creatinine Urine 155.58 mg/dL; Microalbum/Creatinine Ratio Ur 7.7 ug/mg cr (<30)
[2025-02-27 11:55] LABS: Vitamin B12 484 pg/mL (200-900)
[2025-02-27 12:18] LABS: Alanine Aminotransferase 30 U/L (0-31); Albumin Level 4.3 g/dL (3.5-5.0); Alkaline Phosphatase 99 U/L (39-117); Anion Gap 9 (12-20); Aspartate Amino Transferase 29 U/L (5-31); Bilirubin Direct 0.2 mg/dL (0.0-0.5); Bilirubin Total 0.6 mg/dL (0.0-1.0); Blood Urea Nitrogen 14 mg/dL (9-16); Calcium 9.4 mg/dL (8.4-10.2); Carbon Dioxide 29 mmol/L (22-29); Chloride 106 mmol/L (96-108); Cholesterol 152 mg/dL (<200); Estimated Glomerular Filt Rate > 60; Glucose Random 100 mg/dL (60-115); HDL Cholesterol 41 mg/dL (>40); LDL Cholesterol Calculated 78 mg/dL (<100); Sodium 140 mmol/L (135-145); Total Protein 7.3 g/dL (6.5-8.0); Triglycerides 167 mg/dL (<150)
== END 2025-02-27 08:49 | disposition home or self-care (01) ==
LOC: HO.HHCL 08:48
PROVIDERS: Visit Provider Nurse Practitioner Family
DX: E11.00 Type 2 diabetes mellitus with hyperosmolarity without nonketotic hyperglycemic-hyperosmolar coma (NKHHC) (principal); E78.2 Mixed hyperlipidemia; M79.641 Pain in right hand
CPT/HCPCS: 36415; 73130; 80048; 80061; 80076; 82043; 82570; 82607

== ENCOUNTER → 2025-02-27 12:06 | Outpatient (BNV) | payer MEDICARE, MEDICAID, SELFPAY | PROVIDERS: Visit Provider Radiology Diagnostic Radiology | DX: M79.641 Pain in right hand (principal) | CPT/HCPCS: 73130 ==

== ENCOUNTER 2025-04-24 14:22 | Outpatient (REF) | payer MEDICARE, SELFPAY ==
--- OUTSIDE RECORDS SUMMARY | 2025-04-24 15:45 | XMS_ITS | Patient Health Record ---
Author Organization [facility] Address [address] [place] [id number] Care Team Providers Care Lactation Consultant Name Role Phone Domenic Leejerryfranki Primary Care Provider Jeovanny Freire [phone] Reason For Referral No Information Medications Medication SIG (Take, Route, Frequency, Duration) Notes Start Date End Date Status Dulcolax (colon prep) 5 MG take at 3:00 p.m and 7:00p.m. Orally two tablets twice a day for one day for 1 day 06/30/2017 Active MiraLax (colon prep) 8.3 ounce ((238) grams mixed with Gatorade or Crystal Light orally begin at 5:00 p.m. the day before the procedure for 1 day 06/30/2017 Active Norvasc Active Vitamin D Active Social History Tobacco Use: Social History Observation Description Date Details (start date - stop date) Never Smoker NA - NA Tobacco Use/Smoking Question Answer Notes Patient is a nonsmoker Alcohol Screen Question Answer Notes Did you have a drink containing alcohol in the p ast year? No Points 0 Interpretation Negative Section Notes: Nonsmoker; no alcohol From the [place] Problems Problem Type SNOMED Code ICD Code Onset Dates Problem Status W/U Status Risk Notes Problem 064409174 Encounter for screening for malignant neoplasm of colon (Z12.11) Active confirmed Problem [id number] Gastroesophageal reflux disease, esophagitis presence not specified (K21.9) Active confirmed Plan Of Treatment Future Test Test Name Order Date UPPER GI ENDOSCOPY 06/30/2017 COLONOSCOPY 06/30/2017 Insurance Providers Payer Name Payer Address Payer Phone Subscriber Number Group Number Insured Name Patient Relationship to Insured Coverage Start Date Coverage End Date [facility] [address] [place] [phone] [id number] YIMI RANKIN Self - patient is the insured Medical (General) History Medical History History ICD Code Denies [place],DM,CVA,Lung disease,renal dise ase Hypertension Surgical History Surgery Date(Month/Year)
--- OUTSIDE RECORDS SUMMARY | 2025-04-24 15:45 | XMS_ITS | Encounter Summary ---
Author Organization [employer] Address 75 [facility] 7t [place] [address] Care Team Providers Care Client Professional Name Role Phone [place] [facility] Primary Care Provider [phone] Encounter Details Date Type Department Care Team (Late st Contact Info) Description 03/03/2025 Results Follow-Up [facility] 230 [place], [place] [phone] [place] [facility] [address] [place] [address] Albumin, Random Urine W/Creatinine, Vitamin B12, Hepatic Function Panel, Basic Metabolic Panel Social History Tobacco Use Types Packs/Day Years Used Date Smoking Tobacco: Never Passive Smoke Exposure: Never Smokeless Tobacco: Never Alcohol Use Standard Drinks/Week Comments Never 0 (1 standard drink = 0.6 oz pur e alcohol) Depression Answer Date Recorded Patient Health Questionnaire-9 Score 0 02/27/2025 Patient Health Questionnaire-9 Score 0 02/27/2025 Last PHQ-9: Questionnaire Data Not on file 0 02/27/2025 Housing Stability Answer Date Recorded What is [...] Date Recorded Patient Health Questionnaire-2 Score 0 02/27/2025 Internet Access Answer Date Recorded Internet Access Q1 Yes 02/27/2025 Internet Access Q2 Not on file 02/27/2025 Comments No Sex and Gender Information Value Date Recorded Sex Assigned at Female 08/11/2022 10:31 AM EDT Legal Sex Female 10:31 AM EDT Gender Identity Choose not to disclose 10:31 AM EDT Sexual Orientation Choose not to disclose 2021 10:31 AM EDT documented as of this encounter Plan of Treatment Not on file documented as of this encounter Visit Diagnoses Not on filedocumented in this encounter Additional Health Concerns Assessment Noted Time PHQ-9 Depression Total Score: 0 02/28/20 10:30 AM EDT documented as of this encounter Care Teams Client Professional Relationship Specialty Start Date End Date Sally Rees FNP [address] [place] [address] PCP - General Family Medicine 12/09/24 documented as of this encounter
== END 2025-04-24 14:23 | disposition home or self-care (01) ==
LOC: HO.MAMMO 14:22
PROVIDERS: PCP Registered Nurse; Visit Provider Registered Nurse
DX: Z12.31 Encounter for screening mammogram for malignant neoplasm of breast (principal)
CPT/HCPCS: 77063; 77067

== ENCOUNTER → 2025-04-24 14:45 | Outpatient (BNV) | payer MEDICARE, SELFPAY | PROVIDERS: PCP Registered Nurse; Visit Provider Internal Medicine | DX: Z12.31 Encounter for screening mammogram for malignant neoplasm of breast (principal) | CPT/HCPCS: 77063; 77067 ==

== ENCOUNTER 2025-04-26 09:17 | Outpatient (AMB) | payer OTHER, SELFPAY ==
--- NOTE | 2025-04-26 09:30 | A.OFFVIS_ITS ---
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 Patient reports left hand symptoms are greater than right hand. She reports the pain in her 4th digit of her left hand radiates into the left wrist. She expresses she has a nodule that causes her slight pain at the base of her right 3rd finger of the left hand on the palmar aspect. She reports experiencing possible trigger finger in the right hand 2nd & 3rd digits and also her left 4th digit. She says these digits snap back on their own some days. 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 Patient reports left hand symptoms are greater than right hand. She reports the pain in her 4th digit of her left hand radiates into the left wrist. She expresses she has a nodule that causes her slight pain at the base of her right 3rd finger of the left hand on the palmar aspect. She reports experiencing possible trigger finger in the right hand 2nd & 3rd digits and also her left 4th digit. She says these digits snap back on their own some days. PFSH Medical History Hyperlipidemia HTN (hypertension) Surgical History H/O: section Family History Father Stroke Mother HTN (hypertension) Social History Alcohol intake: never Gender identity: Female Female Reproductive History Menstrual Age of Menarche: 13 Review of Systems Const All systems reviewed & are unremarkable except as noted in HPI and below Physical Exam Vital Signs: BMI result Body Mass Index 29.9 Extrem Other: Patient is alert, oriented, and in no acute distress. Neuro: Normal sensation of the tips of all digits of the bilateral hand at this time Vascular: Cap refill brisk Pain: Pain associated with locking and catching of left ring finger and right index finger Tenderness to A1 pulleys of the digits ROM: There is a visible and palpable locking and catching of the left ring finger and right index finger Skin: No lacerations or abrasions. General: No ecchymosis, erythema, or evidence of infection. Psych: Appears grossly normal Affect normal Attitude cooperative Office Procedures AMB Tendon Injection Tendon Injection [id number] Tendon Sheath Injection All charges added?: Procedure code (CPT) selection complete Assessment & Plan Assessment & Plan (1) Trigger finger, left ring finger: Code(s): M65.342 - Trigger finger, left ring finger Category: Medical Plan 1. Trigger finger, left ring finger Patient is educated about this condition Patient is educated about the typical recovery course Patient would like to proceed with steroid injection The risks and benefits of a steroid injection including but not limited to risk of damage to blood vessels, nerves, tendons, infection, skin bleaching, failure to improve symptoms, increased pain, and possible need for further injections or other intervention were discussed with the patient and the patient wishes to proceed with the steroid injection. Once consent was obtained, I sterilely prepped the area over the A1 abdi of the flexor tendon sheath of the left ring finger. I then injected the flexor tendon sheath with a combination of 1 mL of dexamethasone (4mg/ml), and 1% lidocaine. The patient tolerated the procedure well with no complications. If the patient continues to have locking and catching 4-6 weeks following this injection, they may call to schedule appointment to discuss alternative treatment options Follow-up prn Coding Level of Care Code New Pt Level 3 (95428) Diagnoses Trigger finger, left ring finger M65.342 CPT Codes Tendon Injection - Tendon Injection 1: [id number] Tendon Sheath Injection ([id number])
--- OUTSIDE RECORDS SUMMARY | 2025-04-26 09:38 | XMS_ITS | Encounter Summary ---
Author Organization [employer] Address 75 [facility] 7t [place] [address] Care Team Providers Care Booking Police Officer Name Role Phone [place] [facility] Primary Care Provider [phone] Encounter Details Date Type Department Care Team (Late st Contact Info) Description 03/03/2025 Results Follow-Up [facility] [address] [place], [place] [phone] [place] [facility] [address] [place] [address] Albumin, Random Urine W/Creatinine, Vitamin B12, Hepatic [...] documented as of this encounter Care Teams Booking Police Officer Relationship Specialty Start Date End Date Sally Rees FNP [address] [place] [address] PCP - General Family Medicine 12/09/24 documented as of this encounter
--- OUTSIDE RECORDS SUMMARY | 2025-04-26 09:38 | XMS_ITS | Patient Health Record ---
Author Organization [facility] Address [address] [place] [address] Care Team Providers Care Plating Department Helper Name Role Phone Domenic Leejerryfranki Primary Care Provider Jeovanny Freire [phone] Reason For Referral No Information Medications Medication [...] Problem Status W/U Status Risk Notes Problem [id number] Encounter for screening for malignant neoplasm of colon (Z12.11) Active confirmed Problem 745927755 Gastroesophageal reflux disease, esophagitis presence not specified (K21.9) Active confirmed Plan Of Treatment Future Test Test Name Order Date UPPER GI ENDOSCOPY 06/30/2017 COLONOSCOPY 06/30/2017 Insurance Providers Payer Name Payer Address Payer Phone Subscriber Number Group Number Insured Name Patient Relationship to Insured Coverage Start Date Coverage End Date [facility] [address] [place] [phone] [id number] YIMI RANKIN Self - patient is the insured Medical (General) History Medical History History ICD Code Denies [place],DM,CVA,Lung disease,renal dise ase Hypertension Surgical History Surgery Date(Month/Year)
[2025-04-26 09:44] VITALS: BMI 29.9
== END 2025-04-26 10:07 | disposition home or self-care (01) ==
DX: M65.342 Trigger finger, left ring finger (principal)
CPT/HCPCS: 20550; 99203

== ENCOUNTER → 2025-04-26 09:17 | Outpatient (BNVA) | payer OTHER, SELFPAY | DX: M65.342 Trigger finger, left ring finger (principal) | CPT/HCPCS: 20550; 99202; J1100; J2003 ==

== ENCOUNTER 2025-05-24 09:05 | Outpatient (AMB) | payer OTHER, SELFPAY ==
--- NOTE | 2025-05-24 09:17 | MHC.OFFVIS ---
Intake Visit Reasons: Inj-RIF Trigger injection-4 WK Intake Note: Elizabeth is a 69 year old right hand dominant female who presents today for a right index trigger finger injection. She was also given a left ring trigger finger injection at her last visit, 04/26/25. Patient states last left ring trigger injection did not help her much. Statement Clerks Manager Required: Yes Statement Clerks Manager Language: Pathology Lab Technician Services: Statement Clerks Manager Present Statement Clerks Manager Name: Tolu RMA/JOSE Allergies No Known Allergies Allergy (Verified 05/24/25 09:25) HPI HPI Inj-RIF Trigger injection-4 WK: Details: Elizabeth is a 69 year old right hand dominant female who presents today for a right index trigger finger injection. She was also given a left ring trigger finger injection at her last visit, 04/26/25. Patient states last left ring trigger injection did not help her much. The patient also states that she has developed a ganglion cyst at the MCP joint of the right middle finger on the volar aspect, and would like to have this removed. [facility] Medical History Hyperlipidemia HTN (hypertension) Surgical History H/O: section Family History Father Stroke Mother HTN (hypertension) Social History Alcohol intake: never Gender identity: Female Female Reproductive History Menstrual Age of Menarche: 13 Review of Systems Const All systems reviewed & are unremarkable except as noted in HPI and below Physical Exam Extrem Other: Patient is alert, oriented, and in no acute distress. Neuro: Normal sensation of the tips of all digits of the bilateral hand at this time Vascular: Cap refill brisk Pain: Pain associated with locking and catching of left ring finger and right index finger Tenderness to A1 pulleys of the digits No tenderness to palpation of mass of right middle finger ROM: There is a visible and palpable locking and catching of the left ring finger and right index finger Skin: No lacerations or abrasions. General: There is noted to be an approximately 0.25-0.5 cm mass on the volar aspect of the right middle finger at the level of the MCP joint, consistent with ganglion cyst No ecchymosis, erythema, or evidence of infection. Psych: Appears grossly normal Affect normal Attitude cooperative Assessment & Plan Assessment & Plan (1) Trigger finger, right index finger: Code(s): M65.321 - Trigger finger, right index finger Category: Medical (2) Ganglion cyst of joint of finger of right hand: Code(s): M67.441 - Ganglion, right hand Category: Medical Plan 1. Trigger finger, right index finger 2. Right middle finger ganglion cyst I educated the patient about the condition. I discussed both operative and nonoperative treatment options. The patient would like to proceed with surgery. The risks and benefits of operative treatment were discussed with the patient and the patient wishes to proceed with surgery. These risks include, but are not limited to, risk of damage to blood vessels, nerves, tendons, infection, recurrence, incomplete relief of preoperative symptoms, persistent pain, possible need for further surgery, and the risks associated with regional blocks and/or anesthesia. Plan is to take the patient to the operating room at some point in the next few weeks for the following procedures: 1. Right index finger trigger release under local 2. Right middle finger ganglion cyst excision under local All of the preoperative paperwork including the consent was discussed today. All of the patient's questions were answered in the clinic today. The patient understands that they will be in contact with our electrical prospector to discuss scheduling their procedure. Patient reports pre diabetes, no full diabetes diagnosis at this time Takes aspirin every day Denies asthma, heart issues, lung issues, kidney issues, or current smoking. Coding Level of Care Code Est Pt Level 4 (61981) Diagnoses Trigger finger, right index finger M65.321 Ganglion cyst of joint of finger of right hand M67.441
--- OUTSIDE RECORDS SUMMARY | 2025-05-24 09:28 | XMS_ITS | Encounter Summary ---
Author Organization [facility] Address [address] [address] Phone Care Team Providers Care Counter Help Name Role Phone Marta Lee DO Primary Care Provider [phone] Encounter Details Date Type Department Care Team (Late st Contact Info) Description 05/27/2023 Procedure Pass [facility] [place] [address] [place] [address] Social History Tobacco Use Types Packs/Day Years Used Date Smoking Tobacco: Never Smokeless Tobacco: Never Alcohol Use Standard Drinks/Week Comments Never 0 (1 standard drink = 0.6 oz pur e alcohol) Education Answer Date Recorded Are you interested in more education? Not on derrek e 02/06/2023 Are you concerned about learning? Not on file 02/06/2023 No 02/06/2023 No 02/06/2023 Digital Access Answer Date Recorded No 03/10/2023 No 03/10/2023 Reliable internet access at home? Not on file 03/10/2023 Device with a working camera? Not on file Comments No Sex and Gender Information Value Date Recorded Sex Assigned at Female 11/24/2019 9:09 AM EST Legal Sex Female 2:57 PM EST Gender Identity Female 11/24/2019 9:09 AM EST Sexual Orientation Not on file documented as of this encounter Plan of Treatment Not on file documented as of this encounter Visit Diagnoses Not on filedocumented in this encounter Care Teams Counter Help Relationship Specialty Start Date End Date Marta Lee DO [address] [place] [address] [email or web address] PCP - General Family Medicine 02/25/18 documented as of this encounter Additional Source Comments The information contained in this document represents components of the legal health record. It is not the complete legal health record.[facility]
--- OUTSIDE RECORDS SUMMARY | 2025-05-24 09:28 | XMS_ITS | Encounter Summary ---
Author Organization [employer] Address [address] [place] [address] Care Team Providers Care Securities [employer] Real [employer] Director Name Role Phone Siri Diaz FOOD RUNNER Primary Care Provider Tanika Kendrick Primary Care Provider [phone] Stephanie Valdivia NP Primary Care Provider [phone] [facility] FOOD RUNNER Primary Care Provider [phone] Encounter Details Date Type Department Care Team (Latest Contact Info) Description 01/22/2022 Abstract [facility] CONVERSIONS Dental, Provider, DDS Social History [...] on filedocumented in this encounter Care Teams [employer] Director Relationship Specialty Start Date End Date Siri Diaz FNP PCP - General Family Medicine 06/06/22 10/27/22 Tanika Bazan FNP [address] [place] [address] PCP - General Family Medicine 10/28/22 06/14/24 Stephanie Valdivia NP [address] [place] [address] PCP - General Family Medicine 06/15/24 12/08/24 Rock ViewSally FNP [address] [place] [id number] PCP - General Family Medicine 12/09/24 documented as of this encounter
== END 2025-05-24 09:55 | disposition home or self-care (01) ==
LOC: HO.HOS 09:06
PROVIDERS: PCP Registered Nurse
DX: M65.321 Trigger finger, right index finger (principal); M67.441 Ganglion, right hand
CPT/HCPCS: 99214

== ENCOUNTER → 2025-05-24 09:05 | Outpatient (BNVA) | payer OTHER, SELFPAY | PROVIDERS: PCP Registered Nurse | DX: Z01.818 Encounter for other preprocedural examination (principal); M65.321 Trigger finger, right index finger; M67.441 Ganglion, right hand; Z79.82 Long term (current) use of aspirin | CPT/HCPCS: 99212 ==